=== PATIENT | female | born 1985 | race Caucasian/White ===

== ENCOUNTER 2018-11-04 10:38 | Inpatient (IN) | payer BC, OTHER ==
[2018-11-04] MEDS: LACTATED RINGERS 1,000 ML IV SCH ×4 (10:55→19:43)
[2018-11-04 11:06] LABS: Basophils % (A) 0 %; Eosinophils # (A) 0.1 k/uL (0-0.7); Eosinophils % (A) 0 %; HCT 35.3 % (34.0-46.0); HGB 11.7 gm/dL (11.4-16.0); Lymphocytes # (A) 2.2 k/uL (1.0-4.8); Lymphocytes % (A) 17 %; MCH 29.2 pg (25.0-35.0); MCHC 33.1 g/dL (31.0-37.0); MCV 88.2 fL (80.0-100.0); Mean Platelet Volume 6.4; Monocytes # (A) 0.4 k/uL (0-1.0); Monocytes % (A) 3 %; Neutrophils # (A) 10.4 k/uL (1.3-7.7); Neutrophils % (A) 78 %; Platelet Count 341 k/uL (150-450); RBC 4.01 m/uL (3.80-5.40); RDW 14.3 % (11.5-15.5); WBC 13.3 k/uL (3.8-10.6)
[2018-11-04] MEDS ORDERED: BETAMET ACET-BETAMETH SOD PHOS 6 MG/ML VIAL IM SCH (11:15)
[2018-11-04 11:55] LABS: D-Dimer 3.83 mg/L FEU (<0.60); INR 0.8 (<1.2); Partial Thromboplastin Time 23.1 sec (22.0-30.0); Prothrombin Time 9.4 sec (9.0-12.0)
--- NOTE | 2018-11-04 11:59 | US ---
EXAMINATION TYPE: US OB >= 14 wk fetus DATE OF EXAM: 11/04/2018 COMPARISON: None CLINICAL HISTORY: 33-year-old female Bleeding x 1 hour, 3, para 2 TECHNIQUE: Transabdominal (TA) FINDINGS: GESTATIONAL AGE / DATING Physician Established: (30 weeks/4 days) EDC: 01/09/2019 Dates by LMP: Unknown Dates by First Scan: No previous here Dates by Current Scan: (27 weeks/5 days) EDC: 01/29/2019 SURVEY IUP: Single PLACENTA: Posterior, one portion of the placenta is markedly heterogeneous and thickened containing a 6.4cm hypoechoic area within. PREVIA: No Previa NATHANIEL: 15.0 cm Normal CERVICAL LENGTH (transabdominal: norm > 3.0cm): 3.2 cm BIOMETRY PRESENTATION: Vertex LIE: Longitudinal BPD: 7.5 cm 30 weeks / 0 days HC: 26.8 cm 29 weeks / 1 days AC: 20.2 cm 24 weeks / 6 days FL: 5.2 cm 27 weeks / 6 days ESTIMATED WEIGHT IN GRAMS: 959.8 grams ESTIMATED WEIGHT IN LBS/OZ: 2 lbs. 2 oz. WEIGHT PERCENTAGE BASED ON ESTABLISHED DATES: <3% HC/AC: 1.33 Abnormal FL/AC: 25.94 Abnormal HEART RATE: 172 bpm RHYTHM: Normal Viable single IUP measuring 27 weeks 5 days with a heart rate of 172bpm and an estimated delivery gibran e of 01/29/2019. IMPRESSION: 1. Single live intrauterine with established gestational age of 30 weeks 4 days. Current ul trasound biometry is smaller (27 weeks 5 days) placing the child at the <3% for weight. 2. Posterior placenta without previa. However, a large portion of the placenta is very heterogeneous and thickened and contains a 6 cm focal area of hypoechogenicity. Intraplacental hemorrhage with more focal 6 cm hematoma not excluded. 3. Note elevated HC/AC. Underlying brain sparing physiology not excluded. 4. heart rate at the upper limits (172 BPM). A phone call to the ship laborer revealed that the patient was taken to surgery.
[2018-11-04 12:48] VITALS: BMI 34.0
--- NOTE | 2018-11-04 12:52 | P.HPOB ---
History of Present Illness H&P Date: 11/04/18 Chief Complaint: Vaginal bleeding This is a 33-year-old female 3 para 2, with an estimated date of confinement of 01/09/2019, estimated gestational age of 30 weeks 4 days, who presents to labor and delivery with complaints of vaginal bleeding that began about 10 AM today when she sat on the toilet to urinate. She did pass a few small clots. She denies any significant abdominal pain or cramping. She does feel some lower abdominal pressure. She came right to the hospital when the bleeding started. Her has been complicated by baby was diagnosed with [facility] patient of the aorta. She has been seeing doctors at [facility] with maternal- medicine and cardiac surgery. The plan was for her to deliver at [facility]. Her care has been with Dr. Madden and has been otherwise uncomplicated other than the issues with baby. labs: GC/chlamydia-negative Hepatitis B surface antigen-negative RPR-nonreactive Rubella-immune Blood type-O+ Antibody screen-negative Hemoglobin-12.3 Random glucose-73 One hour Glucola-85 Obstetrical history: . History of 2 vaginal deliveries at term with no complications. Gynecologic history: No history of sexual transmitted diseases. Review of Systems Constitutional: Denies chills, Denies fever Eyes: denies blurred vision, denies pain Ears, nose, mouth and throat: Denies headache, Denies sore throat Cardiovascular: Denies chest pain, Denies shortness of breath Respiratory: Denies cough Gastrointestinal: Denies abdominal pain, Denies diarrhea, Denies nausea, Denies vomiting Genitourinary: Reports abnormal vaginal bleeding, Reports pelvic pain (Pressure), Reports Musculoskeletal: Denies myalgias Integumentary: Denies pruritus, Denies rash Neurological: Denies numbness, Denies weakness Psychiatric: Denies anxiety, Denies depression Past Medical History Past Medical History: No Reported History History of Any Multi-Drug Resistant Organisms: None Reported Past Surgical History: No Surgical Hx Reported Past Psychological History: No Psychological Hx Reported Smoking Status: Never smoker Past Alcohol Use History: None Reported Past Drug Use History: None Reported Medications and Allergies Home Medications Medication Instructions Recorded Confirmed Type Pnv,Calcium 72/Iron/Folic Acid 1 each PO DAILY 11/04/18 11/04/18 History [ Plus Tablet] Allergies Allergy/AdvReac Type Severity Reaction Status Date / Time No Known Allergies Allergy Verified 11/04/18 10:43 Exam Osteopathic Statement: *. No significant issues noted on an osteopathic structural exam other than those noted in the History and Physical/Consult. Intake and Output 11/03/18 11/04/18 11/04/18 22:59 06:59 14:59 Other: Weight 81.647 kg HEENT: Within normal limits Heart: Regular rate and rhythm Lungs: Clear to auscultation bilaterally Abdomen: nontender Speculum exam: Watery bloody discharge Cervix exam: 1-1/2 cm/50%/ballotable heart tones: Category 1 with 15 x 15 accelerations and moderate vari ability, no contractions Extremities: Negative Homans Results Result Diagrams: 11/04/18 10:50 Abnormal Lab Results - Last 24 Hours (Table) 11/04/18 11/04/18 11/04/18 Range/Units 10:50 10:50 11:09 WBC 13.3 H (3.8-10.6) k/uL Neutrophils # 10.4 H (1.3-7.7) k/uL Fibrinogen 573 H (200-500) mg/dL D-Dimer 3.83 H (<0.60) mg/L FEU Crossmatch See Detail Assessment and Plan (1) 30 weeks gestation of Current Visit: Yes Status: Acute Code(s): Z3A.30 - 30 WEEKS GESTATION OF [place] EGNANCY SNOMED Code(s): 76016381 (2) Placental abruption in third trimester Current Visit: Yes Status: Acute Code(s): O45.93 - PREMATURE SEPARATION OF PLACENTA, UNSP, THIRD TRIMESTER SNOMED Code(s): 707825414 (3) cardiac anomaly affecting , antepartum Current Visit: Yes Status: Acute Code(s): O35.8XX0 - MATERNAL CARE FOR OTH ABNORMALITY AND DAMAGE, UNSP SNOMED Code(s): 243655238 (4) SGA (small for gestational age), , affecting care of mother, antepartum Current Visit: Yes Status: Acute Code(s): O36.5990 - MATERN CARE FOR OTH OR SUSP POOR FETL GRTH, UNSP TRI, UNSP SNOMED Code(s): 827563080 Plan: Admission for presumptive placental abruption. Will obtain labs and IV access. Anesthesia and pediatrics notified. We'll proceed with urgent section. I have discussed the risks, benefits, and alternative therapies for the above-m entioned procedure and for both sedation/anesthesia as well as necessary blood products administration, if indicated, as they pertain to this patient. The patient has indicated her understanding and acceptance of the risks and procedures discussed.
[2018-11-04] MEDS ORDERED: LIDOCAINE 1% 20 ML VIAL (10MG/ML) FOR IV START INTRADERMA PRN (12:54)
[2018-11-04] MEDS ORDERED: CITRIC ACID-SODIUM CITRATE 15 ML CUP PO ONE (12:54)
[2018-11-04] MEDS ORDERED: LACTATED RINGERS 1,000 ML IV SCH (13:00)
--- NOTE | 2018-11-04 13:07 | P.OP ---
Date of Procedure: 11/04/18 Preoperative Diagnosis: 1. Intrauterine at 30-4/7 weeks. 2. Probable placental abruption. 3. cardiac abnormality-probable coarctation of the aorta. 4. Small for gestational age fetus. Postoperative Diagnosis: Same Procedure(s) Performed: Primary low transverse section Anesthesia: spinal (Spinal Duramorph) Surgeon: Sandhya Peralta Computer Training Specialist #1: Trina Mccarthy Estimated Blood Loss (ml): 1,400 Pathology: other (Placenta) Condition: stable Disposition: floor Indications for Procedure: This is a 33-year-old female 3 para 2 at 30-4/7 weeks, who presents to labor and delivery with complaints of vaginal bleeding was sudden onset this morning. Ultrasound showed possible abnormality along the edge of the placenta. The center was posterior. Her cervix was dilated to 1-1/2 cm with active bright red bleeding noted. She was counseled and taken for urgent section under spinal anesthesia. Pediatrics is present due to known cardiac abnormalities and prematurity. Operative Findings: A viable female infant is noted in the vertex presentation. Apgars are pending at this time. Infant weight is 2 pounds 1.7 ounces. Clear fluid is noted with blood clots floating in the fluid. Placenta does appear to have clots next to it. Description of Procedure: The patient is taken to the operating room where she is placed in the dorsal supine position with leftward tilt after spinal Duramorph anesthesia is given. She is prepped and draped in the normal sterile fashion. Skin was tested and found to be adequately anesthetized. A Pfannenstiel skin incision was made with a scalpel. A second knife was used to carry the incision down to the underlying layer of fascia. The fascia was nicked in the midline with a scalpel and then extended laterally bilaterally with Sanders scissors. The anterior lip of the fascia was grasped with 2 Ananda clamps and then dissected off the underlying rectus muscle in the midline with Sanders scissors. The inferior aspect of the fascial incision was grasped with 2 Ananda clamps and dissected off the underlying rectus muscle and the midline with Sanders scissors. Next the peritoneum layer was tented up with 2 hemostats and then entered sharply with the scalpel. The incision is extended superiorly and inferiorly with Metzenbaum scissors. Next a DeLee retractor is placed. The vesicouterine peritoneum is entered sharply with Metzenbaum scissors and extended laterally bilaterally with Metzenbaum scissors and then the bladder flap is pushed inferiorly. The lower uterine segment is incised in transverse fashion with the scalpel and then bluntly entered with a hemostat. Clear fluid is noted with some blood clots floating. The incision was then extended laterally bilaterally with 2 fingers. Next the 's head is delivered through the incision. Nose and mouth are bulb suctioned. The remainder of the infant is easily delivered and placed on mother's abdomen. Cord is clamped and cut. is taken to warmer by nursing staff. Pediatrics is present. Uterine fundus is gently massaged and placenta is delivered manually. Several other blood clots are delivered shortly after the placenta. Uterus is exteriorized and cleared of all clots and debris. Uterine incision is closed with 0 Vicryl suture in a running locked fashion. A second layer of 0 Vicryl suture is used in a running fashion for hemostasis. Once adequate hemostasis as assured, the vesicouterine peritoneum is reapproximated with 2-0 Vicryl suture in a running fashion. Posterior cul-de-sac is suctioned of all clots and debris. Uterus is returned to the abdomen. Incision is noted to be hemostatic. Peritoneal layer is closed with 0 Vicryl suture in a running fashion. Muscle layer is reapproximated with 0 Vicryl suture in interrupted fashion. Fascia layer is then closed with 0 PDS suture with 2 sutures meeting in the midline and the knots buried in either side and in the midline. The subcutaneous tissue was then closed with 2-0 Vicryl suture. Skin layer was then closed with jules. All sponge and needle counts are correct. The patient is taken to recovery room in stable condition.
[2018-11-04] MEDS ORDERED: HYDROcodone/APAP 7.5-325MG 1 EACH TAB PO PRN (14:25)
[2018-11-04] MEDS ORDERED: ONDANSETRON 4 MG/2 ML VIAL IVP PRN (14:25)
[2018-11-04] MEDS ORDERED: METOCLOPRAMIDE 5 MG/ML 2 ML VIAL IVP PRN (14:25)
[2018-11-04] MEDS ORDERED: OXYTOCIN 20 UNITS/1000 ML NS 1,000 ML IV SCH (14:25)
[2018-11-04] MEDS ORDERED: diphenhydrAMINE 50 MG CAP PO PRN (14:25)
[2018-11-04] MEDS ORDERED: LANOLIN CREAM 5 GM TUBE TOPICAL PRN (14:25)
[2018-11-04] MEDS ORDERED: HYDROcodone/APAP 5-325MG 1 EACH TAB PO PRN (14:25)
[2018-11-04] MEDS ORDERED: NALOXONE 0.4 MG/ML 1 ML VIAL IV PRN (14:25)
[2018-11-04] MEDS ORDERED: SIMETHICONE 80 MG CHEWABLE PO PRN (14:25)
[2018-11-04] MEDS ORDERED: ACETAMINOPHEN TAB 325 MG TAB PO PRN (14:25)
[2018-11-04] MEDS ORDERED: diphenhydrAMINE 50 MG/ML 1 ML VIAL IVP PRN ×2 (14:25)
[2018-11-04] MEDS ORDERED: ZOLPIDEM 5 MG TAB PO PRN (14:25)
[2018-11-04] MEDS ORDERED: diphenhydrAMINE 25 MG CAP PO PRN (14:25)
[2018-11-04] MEDS ORDERED: IBUPROFEN 600 MG TAB PO PRN (14:25)
[2018-11-04] MEDS: KETOROLAC 30 MG/ML 1 ML VIAL IVP PRN (17:56)
[2018-11-04 18:36] LABS: Basophils % (A) 0 %; Eosinophils % (A) 0 %; HCT 30.6 % (34.0-46.0); HGB 9.8 gm/dL (11.4-16.0); Lymphocytes # (A) 1.1 k/uL (1.0-4.8); Lymphocytes % (A) 6 %; MCH 29.1 pg (25.0-35.0); MCHC 32.1 g/dL (31.0-37.0); MCV 90.6 fL (80.0-100.0); Monocytes # (A) 0.3 k/uL (0-1.0); Monocytes % (A) 2 %; Neutrophils # (A) 18.1 k/uL (1.3-7.7); Neutrophils % (A) 92 %; Platelet Count 312 k/uL (150-450); RBC 3.38 m/uL (3.80-5.40); RDW 14.5 % (11.5-15.5); WBC 19.6 k/uL (3.8-10.6)
[2018-11-04] MEDS ORDERED: SENNOSIDES-DOCUSATE SODIUM 1 EACH TAB PO SCH (20:00)
[2018-11-05] MEDS: KETOROLAC 30 MG/ML 1 ML VIAL IVP PRN ×3 (00:03→11:47)
[2018-11-05] MEDS: LACTATED RINGERS 1,000 ML IV SCH ×2 (00:05→04:36)
--- NOTE | 2018-11-05 06:25 | P.PN ---
Progress Note - Text Progress Note Date: 11/05/18 S/p duramorph spinal. pod 1, doing well. able to walk, able to have bowel and bladder function. minimal pruritis. pain well controlled. doing well over all. baby transferred to [facility]. delivery at 30 weeks with coarctation of aorta.
[2018-11-05 06:58] LABS: Basophils % (A) 0 %; Eosinophils # (A) 0.1 k/uL (0-0.7); Eosinophils % (A) 0 %; HCT 27.9 % (34.0-46.0); Lymphocytes # (A) 1.8 k/uL (1.0-4.8); Lymphocytes % (A) 9 %; MCH 28.9 pg (25.0-35.0); MCHC 32.2 g/dL (31.0-37.0); MCV 89.7 fL (80.0-100.0); Monocytes # (A) 0.5 k/uL (0-1.0); Monocytes % (A) 3 %; Neutrophils # (A) 17.1 k/uL (1.3-7.7); Neutrophils % (A) 87 %; Platelet Count 288 k/uL (150-450); RBC 3.11 m/uL (3.80-5.40); RDW 14.5 % (11.5-15.5); WBC 19.8 k/uL (3.8-10.6)
--- NOTE | 2018-11-05 08:30 | P.DS ---
Providers Date of admission: 11/04/18 11:08 Expected date of discharge: 11/05/18 Attending physician: Ben Madden Primary care physician: Stated None Hospital Course: Patient is postop day 1 from emergency section due to abruption at 31 weeks. Should her baby has been transferred to [facility] and she would like to go to [facility]. At this time her vital signs are stable and she is afebrile. Heart regular, lungs clear, extremities are without pain. She is able to ambulate. She is voiding without difficulty. She is tolerating a diet. We'll therefore discharged patient to home to that she go be with her baby. Instructions for discharge were thoroughly reviewed for her and all questions were answered for her. She'll follow up with me on Monday for stable removal. All the questions were answered for her and prescription for Motrin and no car were for it to the pharmacy. Patient Condition at Discharge: Good Plan - Discharge Summary Discharge Rx Participant: Yes New Discharge Prescriptions: New Ibuprofen [Motrin] 600 mg PO Q6HR PRN #30 tab PRN Reason: Pain HYDROcodone/APAP 5-325MG [Echo 5-325] 1 tab PO Q4HR PRN #20 tab PRN Reason: Pain No Action Pnv,Calcium 72/Iron/Folic Acid [ Plus Tablet] 1 each PO DAILY Discharge Medication List Pnv,Calcium 72/Iron/Folic Acid [ Plus Tablet] 1 each PO DAILY 11/04/18 [History] HYDROcodone/APAP 5-325MG [Echo 5-325] 1 tab PO Q4HR PRN #20 tab 11/05/18 [Rx] Ibuprofen [Motrin] 600 mg PO Q6HR PRN #30 tab 11/05/18 [Rx] Follow up Appointment(s)/Referral(s): Ben Madden DO [Doctor of Osteopathic Medicine] - 11/09/18 Activity/Diet/Wound Care/Special Instructions: No heavy lifting, limit stairs and driving, and pelvic rest. If any high temperatures, heavy bleeding, or severe pain call my office. Please return to the office on Monday for staple removal. Discharge Disposition: HOME SELF-CARE
[2018-11-05 09:19] VITALS: BP 109/61; PULSE 79; RESP 16; TEMP 98.2
== END 2018-11-05 13:20 | disposition home or self-care (01) | DRG 788 ==
LOC: FBPOP 10:38 → MERGE 11:08 → 4FBP 11:08
PROVIDERS: ADMIT Obstetrics & Gynecology; ATTEND Obstetrics & Gynecology
PROC: 10D00Z1 Extraction of Products of Conception, Low, Open Approach (ICD-10-PCS; principal; 2018-11-04 11:45)
DX: O45.93 Premature separation of placenta, unspecified, third trimester (principal); Z37.0 Single live birth; Z3A.31 31 weeks gestation of pregnancy; O36.5930 Maternal care for other known or suspected poor fetal growth, third trimester, not applicable or unspecified; O35.8XX0 Maternal care for other (suspected) fetal abnormality and damage, not applicable or unspecified; Z79.899 Other long term (current) drug therapy
CPT/HCPCS: 59025; 76805; 85025; 85379; 85384; 85610; 85730; 86850; 86900; 86901; 86920; 88307; 96360; 99215

== ENCOUNTER 2019-08-26 05:33 | Emergency (ER) | payer OTHER ==
[2019-08-26 05:46] VITALS: TEMP 97.6
[2019-08-26 06:11] VITALS: RESP 20
[2019-08-26] MEDS ORDERED: IPRATROPIUM-ALBUTEROL 3 ML NEB INHALATION STA (06:16)
--- NOTE | 2019-08-26 06:18 | ED ---
Chest Pain HPI - General Chief Complaint: Chest Pain Stated Complaint: Chest pain Time Seen by Provider: 08/26/19 06:02 Source: patient, RN notes reviewed, old records reviewed Mode of arrival: ambulatory Limitations: no limitations - History of Present Illness Initial Comments: Patient is a 34-year-old female presents emergency department today with months of coughing. She reports that this morning around 2 AM she woke up with left- sided rib pain. She reports that her cough is nonproductive. She states that the pain is reproducible palpation. She denies abdominal pain. She reports sometimes she coughs so hard she does vomit. - Related Data Home Medications Medication Instructions Recorded Confirmed Pnv,Calcium 72/Iron/Folic Acid 1 each PO DAILY 11/04/18 11/04/18 [ Plus Tablet] Previous Rx's Medication Instructions Recorded HYDROcodone/APAP 5-325MG [[place] 1 tab PO Q4HR PRN #20 tab 11/05/18 5-325] Ibuprofen [Motrin] 600 mg PO Q6HR PRN #30 tab 11/05/18 Albuterol Inhaler [Ventolin Hfa 1 - 2 puff INHALATION RT-Q6H PRN 08/26/19 Inhaler] #1 inhaler Azithromycin 250 mg PO DAILY 3 Days #6 tab 08/26/19 Promethazine/Dextromethorphan 5 ml PO TID #120 ml 08/26/19 [Phenergan DM Syrup] methylPREDNISolone Dose Pack 4 mg PO DIRECTED #21 package 08/26/19 [Medrol Dose Pack] Allergies Allergy/AdvReac Type Severity Reaction Status Date / Time No Known Allergies Allergy Verified 08/26/19 05:46 Review of Systems ROS Statement: Those systems with pertinent positive or pertinent negative responses have been documented in the HPI. ROS Other: All systems not noted in ROS Statement are negative. EKG Findings - EKG Comments: EKG Findings:: EKG shows normal sinus rhythm, rightward axis. Borderline EKG. Ventricular rate of 83 bpm. Pulse 140 ms. QS duration is 100 ms. QT QTc is 390/458 ms. Past Medical History Past Medical History: No Reported History History of Any Multi-Drug Resistant Organisms: None Reported Past Surgical History: Section Past Anesthesia/Blood Transfusion Reactions: No Reported Reaction Past Psychological History: No Psychological Hx Reported Smoking Status: Current every day smoker Past Alcohol Use History: Rare Past Drug Use History: None Reported - Past Family History Mother Family Medical History: No Reported History General Exam - General Exam Comments Initial Comments: 34-year-old female. Alert and oriented 3. No significant distress. General: Well appearing, well nourished, in no distress. Oriented x 3, normal mood and affect . Ambulating without difficulty. Skin: Good turgor, no rash, unusual bruising or prominent lesions Hair: Normal texture and distribution. HEENT: Head: Normocephalic, atraumatic, no visible or palpable masses, depressions, or scaring. Eyes: Visual acuity intact, conjunctiva clear, sclera non-icteric, EOM intact, PERRL. Ears: EACs clear, TMs translucent & cone of light visualized. hearing intact. Nose: No external lesions, mucosa non-inflamed, septum and turbinates normal Mouth: Mucous membranes moist, no mucosal lesions. Teeth/Gums: No obvious caries or periodontal disease. No gingival inflammation or significant resorption. Pharynx: Mucosa non-inflamed, no tonsillar hypertrophy or exudate Neck: Supple, without lesions, bruits, or adenopathy, thyroid non-enlarged and non-tender Heart: No cardiomegaly or thrills; regular rate and rhythm, no murmur or gallop Lungs: Clear to auscultation. Patient is a tenderness over the left ribs. Abdomen: Bowel sounds normal, no tenderness, organomegaly, masses, or hernia Back: Spine normal without deformity or tenderness, no CVA tenderness Rectal: Normal sphincter tone, no hemorrhoids or masses palpable Extremities: No amputations or deformities, cyanosis, edema or varicosities, p eripheral pulses intact Musculoskeletal: Normal gait and station. No misalignment, asymmetry, crepitation, defects, tenderness, masses, effusions, decreased range of motion, instability, atrophy or abnormal strength or tone in the head, neck, spine, ribs, pelvis or extremities. Neurologic: CN 2-12 normal. Sensation to pain, touch, and proprioception normal. DTRs normal in upper and lower extremities. No pathologic reflexes. Limitations: no limitations Course Vital Signs 08/26/19 08/26/19 08/26/19 05:43 06:10 07:49 Temperature 97.6 F Pulse Rate 101 H 89 90 Respiratory 18 20 Rate Blood Pressure 125/80 143/89 O2 Sat by Pulse 97 99 Oximetry 02/10/20 07:56 Temperature Pulse Rate 92 Respiratory Rate Blood Pressure O2 Sat by Pulse Oximetry Chest Pain MDM - MDM Asians other 4-year-old female presents with left-sided rib pain after months of coughing. She reports that she's woke up today with left-sided rib pain after heavy bouts of coughing. Patient is significant only tender and pain is reproducible. No abdominal pain. She doesn't appear to be short of breath. She is given DuoNeb treatment. She is given IM Solu-Medrol and Toradol. Patient's chest x-ray was read negative for any acute process. EKG was negative for any acute abnormality. This time patient's case is discussed with Dr. Martinez. Clinical concern for possible rib injury or contusion related to coughing. No clinical concern for PE. Negative wells score. Chest x-ray is normal. Treat the Patient this time for bronchitis with inhaler Solu-Medrol, cough medication and azithromycin due to persistent cough. I discussed return parameters and close PCP follow-up. Disposition Clinical Impression: Rib pain on left side, Chronic cough Disposition: HOME SELF-CARE Condition: Good Instructions (If sedation given, give patient instructions): Chronic Cough (ED), Rib Contusion (ED) Additional Instructions: Please use medication as discussed. Please follow up with family doctor if symptoms have not improved over the next two days. Please return to the emergency room if your symptoms increase or worsen or for any other concerns. Prescriptions: Azithromycin 250 mg PO DAILY 3 Days #6 tab methylPREDNISolone Dose Pack [Medrol Dose Pack] 4 mg PO DIRECTED #21 package Promethazine/Dextromethorphan [Phenergan DM Syrup] 5 ml PO TID #120 ml Albuterol Inhaler [Ventolin Hfa Inhaler] 1 - 2 puff INHALATION RT-Q6H PRN #1 inhaler PRN Reason: Shortness Of Breath Is patient prescribed a controlled substance at d/c from ED?: No Referrals: None,Stated [Primary Care Provider] - 1-2 days Time of Disposition: 08:16
--- NOTE | 2019-08-26 06:19 | XR ---
EXAMINATION TYPE: XR chest 2V DATE OF EXAM: 08/26/2019 COMPARISON: NONE HISTORY: Cough TECHNIQUE: FINDINGS: Heart and mediastinum are normal. Lungs are clear. Diaphragm is normal. Bony thorax appears normal. IMPRESSION: Normal chest
[2019-08-26] MEDS ORDERED: guaiFENesin-Coden 100-10MG/5ML 10 ML CUP PO ONE (06:30)
[2019-08-26] MEDS ORDERED: methylPREDNISolone SOD SUCCI 125 MG/2 ML VIAL IM ONE (07:13)
[2019-08-26] MEDS ORDERED: KETOROLAC 60 MG/2 ML VIAL IM STA (07:14)
[2019-08-26 08:40] VITALS: BP 134/89; PULSE 72
== END 2019-08-26 08:41 | disposition home or self-care (01) ==
LOC: EC 05:33
DX: J40 Bronchitis, not specified as acute or chronic (principal); F17.200 Nicotine dependence, unspecified, uncomplicated
CPT/HCPCS: 94640; 93005; 87502; 71046; 99284; 96372 ×2; J2930; J1885

== ENCOUNTER 2020-04-12 10:37 | Emergency (ER) | payer OTHER ==
[2020-04-12] MEDS ORDERED: ONDANSETRON 4 MG/2 ML VIAL IVP STA (11:08)
[2020-04-12] MEDS ORDERED: SODIUM CHLORIDE 0.9% 500 ML 500 ML IV STA (11:08)
[2020-04-12] MEDS ORDERED: PANTOPRAZOLE 40 MG/10 ML VIAL IVP STA (11:08)
[2020-04-12] MEDS ORDERED: SODIUM CHLORIDE 0.9% 1,000 ML IV STA (11:08)
[2020-04-12] MEDS ORDERED: MAG HYDROX/AL HYDROX/SIMETH 30 ML, HYOSCYAMINE ELIXIR 10 ML PO STA ×2 (11:09)
--- NOTE | 2020-04-12 11:21 | ED ---
Nausea/Vomiting/Diarrhea HPI - General Chief complaint: Nausea/Vomiting/Diarrhea Stated complaint: Abd pain, vomiting blood Time Seen by Provider: 04/12/20 10:59 Source: patient, RN notes reviewed Mode of arrival: wheelchair Limitations: no limitations - History of Present Illness Initial comments: This a 34-year-old female presents emergency Department chief complaint abdominal pain, nausea vomiting. Patient states she's been sick for last 2 months states that she's noticed that she's had dark black looking stools and states that she vomited up some coffee colored emesis today. Patient states that there is no consistency to it states it was more liquid. Patient denies any current chest pain. She states that she does take Motrin regular basis. She states it seems to make it worse. She attempted to start omeprazole [id number] but has been taking intermittently. She has no history of gastric ulcers. Patient denies any other medications taken. Patient states she feels tired, fatigued, feels dehydrated. - Related Data Home Medications Medication Instructions Recorded Confirmed Pnv,Calcium 72/Iron/Folic Acid 1 each PO DAILY 11/04/18 11/04/18 [ Plus Tablet] Previous Rx's Medication Instructions Recorded HYDROcodone/APAP 5-325MG [[place] 1 tab PO Q4HR PRN #20 tab 11/05/18 5-325] Ibuprofen [Motrin] 600 mg PO Q6HR PRN #30 tab 11/05/18 Albuterol Inhaler (Mhu) [Ventolin 1 - 2 puff INHALATION RT-Q6H PRN 08/26/19 Hfa Inhaler (Mhu)] #1 inhaler Azithromycin 250 mg PO DAILY 3 Days #6 tab 08/26/19 Promethazine/Dextromethorphan 5 ml PO TID #120 ml 08/26/19 [Phenergan DM Syrup] methylPREDNISolone Dose Pack 4 mg PO DIRECTED #21 package 08/26/19 [Medrol Dose Pack] Ondansetron Odt [Zofran Odt] 4 mg PO Q8HR PRN #10 tab 04/12/20 Pantoprazole [Protonix] 40 mg PO DAILY #30 tablet. 04/12/20 Sucralfate [Carafate] 1 gm PO BID #14 tablet 04/12/20 Allergies Allergy/AdvReac Type Severity Reaction Status Date / Time No Known Allergies Allergy Verified 04/12/20 10:57 Review of Systems ROS Statement: Those systems with pertinent positive or pertinent negative responses have been documented in the HPI. ROS Other: All systems not noted in ROS Statement are negative. Past Medical History Past Medical History: No Reported History History of Any Multi-Drug Resistant Organisms: None Reported Past Surgical History: Section Past Anesthesia/Blood Transfusion Reactions: No Reported Reaction Past Psychological History: No Psychological Hx Reported Smoking Status: Current every day smoker Past Alcohol Use History: Rare Past Drug Use History: None Reported - Past Family History Mother Family Medical History: No Reported History General Exam Limitations: no limitations General appearance: alert, in no apparent distress Head exam: Present: atraumatic, normocephalic, normal inspection Eye exam: Present: normal appearance, PERRL, EOMI. Absent: scleral icterus, conjunctival injection, periorbital swelling ENT exam: Present: normal exam, normal oropharynx, mucous membranes moist, TM's normal bilaterally Neck exam: Present: normal inspection, full ROM. Absent: tenderness, meningismus, lymphadenopathy Respiratory exam: Present: normal lung sounds bilaterally. Absent: respiratory distress, wheezes, rales, rhonchi, stridor Cardiovascular Exam: Present: regular rate, normal rhythm, normal heart sounds. Absent: systolic murmur, diastolic murmur, rubs, gallop, clicks GI/Abdominal exam: Present: soft, tenderness (Epigastric moderate), normal bowel sounds. Absent: distended, guarding, rebound, rigid Neurological exam: Present: alert, oriented X3 Skin exam: Present: warm, dry, intact, normal color. Absent: rash Course Vital Signs 04/12/20 04/12/20 10:55 12:21 Temperature 98.1 F Pulse Rate 107 H 75 Respiratory 16 18 Rate Blood Pressure 118/73 126/79 O2 Sat by Pulse 100 98 Oximetry Medical Decision Making - Medical Decision Making 34-year-old female presented from for abdominal pain. Patient does have mild transaminitis and hyperbilirubinemia. Patient had ultrasound shows fatty liver disease. We discussed follow-up with GI patient's had some ongoing abdominal issues related to most likely peptic ulcer disease. Patient we treated with Protonix, Carafate with follow-up with GI. - Lab Data Result diagrams: 04/12/20 11:17 09/27/20 11:17 Lab Results 04/12/20 04/12/20 04/12/20 Range/Units 11:17 11:17 11:28 WBC 9.3 (3.8-10.6) k/uL RBC 4.37 (3.80-5.40) m/uL Hgb 13.2 (11.4-16.0) gm/dL Hct 42.0 (34.0-46.0) % MCV 96.2 (80.0-100.0) fL MCH 30.3 (25.0-35.0) pg MCHC 31.5 (31.0-37.0) g/dL RDW 17.8 H (11.5-15.5) % Plt Count 241 (150-450) k/uL Neutrophils % 72 % Lymphocytes % 17 % Monocytes % 8 % Eosinophils % 1 % Basophils % 1 % Neutrophils # 6.7 (1.3-7.7) k/uL Lymphocytes # 1.6 (1.0-4.8) k/uL Monocytes # 0.8 (0-1.0) k/uL Eosinophils # 0.1 (0-0.7) k/uL Basophils # 0.0 (0-0.2) k/uL Anisocytosis Slight Macrocytosis Slight Sodium 138 (137-145) mmol/L Potassium 3.2 L (3.5-5.1) mmol/L Chloride 102 (98-107) mmol/L Carbon Dioxide 28 (22-30) mmol/L Anion Gap 8 mmol/L BUN 3 L (7-17) mg/dL Creatinine 0.58 (0.52-1.04) mg/dL Est GFR (CKD-EPI)AfAm >90 (>60 ml/min/1.73 sqM) Est GFR (CKD-EPI)NonAf >90 (>60 ml/min/1.73 sqM) Glucose 114 H (74-99) mg/dL Calcium 8.5 (8.4-10.2) mg/dL Total Bilirubin 1.5 H (0.2-1.3) mg/dL AST 160 H (14-36) U/L ALT 57 H (4-34) U/L Alkaline Phosphatase 222 H (38-126) U/L Total Protein 6.7 (6.3-8.2) g/dL Albumin 3.3 L (3.5-5.0) g/dL Amylase 51 (30-110) U/L Lipase 269 (23-300) U/L Urine Color Dark Yellow Urine Appearance Clear (Clear) Urine pH 6.5 (5.0-8.0) Ur Specific [place] 1.025 (1.001-1.035) Urine Protein Trace H (Negative) Urine Glucose (UA) Negative (Negative) Urine Ketones Trace H (Negative) Urine Blood Moderate H (Negative) Urine Nitrite Negative (Negative) Urine Bilirubin 1+ H (Negative) Urine Urobilinogen 8.0 (<2.0) mg/dL Ur Leukocyte Esterase Negative (Negative) Urine RBC 12 H (0-5) /hpf Urine WBC 1 (0-5) /hpf Ur Squamous Epith Cells <1 (0-4) /hpf Hyaline Casts 3 H (0-2) /lpf Urine Mucus Few H (None) /hpf Disposition Clinical Impression: Peptic ulcer disease, Abdominal pain Disposition: HOME SELF-CARE Condition: Stable Instructions (If sedation given, give patient instructions): Peptic Ulcer (ED), Diet for Stomach Ulcers and Gastritis (ED) Additional Instructions: Please return to the Emergency Department if symptoms worsen or any other concerns. Prescriptions: Sucralfate [Carafate] 1 gm PO BID #14 tablet Pantoprazole [Protonix] 40 mg PO DAILY #30 tablet. Ondansetron Odt [Zofran Odt] 4 mg PO Q8HR PRN #10 tab PRN Reason: Nausea Is patient prescribed a controlled substance at d/c from ED?: No Referrals: None,Stated [Primary Care Provider] - 1-2 days Ines Cordero MD [STAFF PHYSICIAN] - 1-2 days Time of Disposition: 13:34
[2020-04-12 11:29] LABS: Anisocytosis Slight; Basophils % (A) 1 %; Eosinophils # (A) 0.1 k/uL (0-0.7); Eosinophils % (A) 1 %; HGB 13.2 gm/dL (11.4-16.0); Lymphocytes # (A) 1.6 k/uL (1.0-4.8); Lymphocytes % (A) 17 %; MCH 30.3 pg (25.0-35.0); MCHC 31.5 g/dL (31.0-37.0); MCV 96.2 fL (80.0-100.0); Macrocytosis Slight; Mean Platelet Volume 7.3; Monocytes # (A) 0.8 k/uL (0-1.0); Monocytes % (A) 8 %; Neutrophils # (A) 6.7 k/uL (1.3-7.7); Neutrophils % (A) 72 %; Platelet Count 241 k/uL (150-450); RBC 4.37 m/uL (3.80-5.40); RDW 17.8 % (11.5-15.5); WBC 9.3 k/uL (3.8-10.6)
[2020-04-12 11:41] LABS: ALT 57 U/L (4-34); AST 160 U/L (14-36); African American GFR (CKD) >90 (>60 ml/min/1.73 sqM); Albumin 3.3 g/dL (3.5-5.0); Alkaline Phosphatase 222 U/L (38-126); Amylase 51 U/L (30-110); Anion Gap 8 mmol/L; Blood Urea Nitrogen 3 mg/dL (7-17); Calcium 8.5 mg/dL (8.4-10.2); Carbon Dioxide 28 mmol/L (22-30); Chloride 102 mmol/L (98-107); Glucose 114 mg/dL (74-99); Non-African American GFR(CKD) >90 (>60 ml/min/1.73 sqM); Potassium 3.2 mmol/L (3.5-5.1); Sodium 138 mmol/L (137-145); Total Bilirubin 1.5 mg/dL (0.2-1.3); Total Protein 6.7 g/dL (6.3-8.2)
[2020-04-12 12:10] LABS: Appearance,Urine Clear (Clear); Bilirubin,Urine 1+ (Negative); Blood,Urine Moderate (Negative); Color,Urine Dark Yellow; Glucose,Urine (UA) Negative (Negative); Hyaline Casts,Urine 3 /lpf (0-2); Ketones,Urine Trace (Negative); Leukocyte Esterase,Urine Negative (Negative); Mucus,Urine Few /hpf; Nitrite,Urine Negative (Negative); PH, Urine 6.5 (5.0-8.0); Protein,Urine Trace (Negative); RBC,Urine 12 /hpf (0-5); Specific Gravity,Urine 1.025 (1.001-1.035); Squamous Epithelial Cell,Urine <1 /hpf (0-4); WBC,Urine 1 /hpf (0-5)
[2020-04-12] MEDS ORDERED: HYDROmorphone 0.5 MG/0.5 ML SYRINGE IVP STA (12:24)
--- NOTE | 2020-04-12 13:28 | US ---
EXAMINATION TYPE: US gallbladder DATE OF EXAM: 04/12/2020 COMPARISON: CT 08/04/2012, US 09/11/2012 CLINICAL HISTORY: pain. Difficult exam due to overlying bowel gas EXAM MEASUREMENTS: Liver Length: 17.9 cm Gallbladder Wall: 0.2 cm CBD: 0.6 cm Right Kidney: 10.6 x 4.3 x 5.4 cm Pancreas: Obscured by bowel gas Liver: Enlarged, attenuating, heterogeneous compatible with moderate fatty infiltration of the liver . Gallbladder: wnl Evidence for sonographic Shipley's sign: Yes CBD: Measuring upper limits of normal Right Kidney: No hydronephrosis or masses seen IMPRESSION: 1. Hepatomegaly with moderate fatty infiltration liver.
[2020-04-12 13:47] VITALS: BP 129/80; PULSE 82; RESP 16; TEMP 97.6
== END 2020-04-12 13:47 | disposition home or self-care (01) ==
LOC: EC 10:37
DX: K27.9 Peptic ulcer, site unspecified, unspecified as acute or chronic, without hemorrhage or perforation (principal); R74.0 Nonspecific elevation of levels of transaminase and lactic acid dehydrogenase [LDH]; E80.6 Other disorders of bilirubin metabolism; K76.0 Fatty (change of) liver, not elsewhere classified; F17.200 Nicotine dependence, unspecified, uncomplicated
CPT/HCPCS: 36415; 80053; 82150; 83690; 85025; 81001; 76705; 99284; 96374; 96375 ×2; 96361 ×2; J2405; C9113; J1170

== ENCOUNTER 2021-04-04 19:20 | Emergency (ER) | payer OTHER ==
[2021-04-04] MEDS ORDERED: ONDANSETRON 4 MG/2 ML VIAL IVP STA (20:14)
[2021-04-04] MEDS ORDERED: HYDROmorphone 1 MG/ML 1 ML SYRINGE IVP STA ×2 (20:14→21:44)
[2021-04-04] MEDS ORDERED: SODIUM CHLORIDE 0.9% 1,000 ML IV STA (20:14)
[2021-04-04 20:43] LABS: Basophils % (A) 0 %; Eosinophils # (A) 0.1 k/uL (0-0.7); Eosinophils % (A) 1 %; HGB 11.8 gm/dL (11.4-16.0); Lymphocytes # (A) 2.6 k/uL (1.0-4.8); Lymphocytes % (A) 31 %; MCH 26.9 pg (25.0-35.0); MCHC 31.8 g/dL (31.0-37.0); MCV 84.6 fL (80.0-100.0); Mean Platelet Volume 6.8; Monocytes # (A) 0.4 k/uL (0-1.0); Monocytes % (A) 4 %; Neutrophils # (A) 5.1 k/uL (1.3-7.7); Neutrophils % (A) 61 %; Platelet Count 248 k/uL (150-450); RBC 4.38 m/uL (3.80-5.40); RDW 15.8 % (11.5-15.5); WBC 8.5 k/uL (3.8-10.6)
[2021-04-04 20:52] LABS: Appearance,Urine Clear (Clear); Bilirubin,Urine Negative (Negative); Blood,Urine Negative (Negative); Color,Urine Colorless; Glucose,Urine (UA) Negative (Negative); Ketones,Urine Negative (Negative); Leukocyte Esterase,Urine Negative (Negative); Nitrite,Urine Negative (Negative); Protein,Urine Negative (Negative); Specific Gravity,Urine 1.003 (1.001-1.035); Urobilinogen,Urine <2.0 mg/dL (<2.0)
[2021-04-04 21:10] LABS: ALT 12 U/L (4-34); AST 19 U/L (14-36); African American GFR (CKD) >90 (>60 ml/min/1.73 sqM); Albumin 4.3 g/dL (3.5-5.0); Alkaline Phosphatase 64 U/L (38-126); Amylase 48 U/L (30-110); Anion Gap 11 mmol/L; Blood Urea Nitrogen 8 mg/dL (7-17); Calcium 9.9 mg/dL (8.4-10.2); Carbon Dioxide 22 mmol/L (22-30); Chloride 107 mmol/L (98-107); Glucose 83 mg/dL (74-99); Lipase 56 U/L (23-300); Non-African American GFR(CKD) >90 (>60 ml/min/1.73 sqM); Potassium 3.7 mmol/L (3.5-5.1); Sodium 140 mmol/L (137-145); Total Bilirubin 0.3 mg/dL (0.2-1.3); Total Protein 7.4 g/dL (6.3-8.2)
--- NOTE | 2021-04-04 21:43 | XR ---
EXAMINATION TYPE: XR KUB DATE OF EXAM: 04/04/2021 COMPARISON: 08/04/2012 HISTORY: Abdominal pain TECHNIQUE: 2 views upright FINDINGS: There is no sign of intestinal obstruction or pneumoperitoneum. Fecal pattern is normal. Th ere are opacities on the right side of the abdomen that could be ingested medication. There are no de finite calcifications over the kidneys. There is mild thoracolumbar levoscoliosis. Lung bases are steph ar. IMPRESSION: Nonacute abdomen.
[2021-04-04 21:54] VITALS: PULSE 85
--- NOTE | 2021-04-04 22:02 | ED ---
Abdominal Pain HPI - General Chief Complaint: Abdominal Pain Stated Complaint: Pancreatitis Time Seen by Provider: 04/04/21 20:01 Source: patient, RN notes reviewed Mode of arrival: ambulatory - History of Present Illness Initial Comments: Patient is a 35-year-old female that presents to emergency department stating that she is having a pancreatitis flareup. She notes then going on since Monday. She notes that she tried remedying at home with no relief. She was otherwise a well-appearing 35-year-old female. She noted that her pain was approximately an 8-9 out of 10 with no relief. She denied any aggravating factors or alleviating factors. She also is constant on the day. She denied any chest pain shortness of breath headache vomiting diarrhea constipation fever fatigue chills. - Related Data Home Medications Medication Instructions Recorded Confirmed Pnv,Calcium 72/Iron/Folic Acid 1 each PO DAILY 11/04/18 11/04/18 [ Plus Tablet] Previous Rx's Medication Instructions Recorded HYDROcodone/APAP 5-325MG [[place] 1 tab PO Q4HR PRN #20 tab 11/05/18 5-325] Ibuprofen [Motrin] 600 mg PO Q6HR PRN #30 tab 11/05/18 Albuterol Inhaler (Mhu) [Ventolin 1 - 2 puff INHALATION RT-Q6H PRN 08/26/19 Hfa Inhaler (Mhu)] #1 inhaler Azithromycin 250 mg PO DAILY 3 Days #6 tab 08/26/19 Promethazine/Dextromethorphan 5 ml PO TID #120 ml 08/26/19 [Phenergan DM Syrup] methylPREDNISolone Dose Pack 4 mg PO DIRECTED #21 package 08/26/19 [Medrol Dose Pack] Ondansetron Odt [Zofran Odt] 4 mg PO Q8HR PRN #10 tab 04/12/20 Pantoprazole [Protonix] 40 mg PO DAILY #30 tablet. 04/12/20 Sucralfate [Carafate] 1 gm PO BID #14 tablet 04/12/20 Allergies Allergy/AdvReac Type Severity Reaction Status Date / Time No Known Allergies Allergy Verified 04/04/21 19:49 Review of Systems ROS Statement: Those systems with pertinent positive or pertinent negative responses have been documented in the HPI. ROS Other: All systems not noted in ROS Statement are negative. Past Medical History Past Medical History: No Reported History Additional Past Medical History / Comment(s): pancreatitis History of Any Multi-Drug Resistant Organisms: None Reported Past Surgical History: Section Past Anesthesia/Blood Transfusion Reactions: No Reported Reaction Past Psychological History: No Psychological Hx Reported Smoking Status: Current every day smoker Past Alcohol Use History: Rare Past Drug Use History: None Reported - Past Family History Mother Family Medical History: No Reported History General Exam General appearance: alert, in no apparent distress Head exam: Present: atraumatic, normocephalic, normal inspection Eye exam: Present: normal appearance, PERRL, EOMI. Absent: scleral icterus, conjunctival injection, periorbital swelling Neck exam: Present: normal inspection Respiratory exam: Present: normal lung sounds bilaterally. Absent: respiratory distress, wheezes, rales, rhonchi, stridor Cardiovascular Exam: Present: regular rate, normal rhythm, normal heart sounds. Absent: systolic murmur, diastolic murmur, rubs, gallop, clicks GI/Abdominal exam: Present: soft, tenderness (Upper quadrant), normal bowel sounds. Absent: distended, guarding, rebound, rigid Extremities exam: Present: normal inspection, full ROM, normal capillary refill. Absent: tenderness, pedal edema, joint swelling, calf tenderness Neurological exam: Present: alert, oriented X3 Psychiatric exam: Present: normal affect, normal mood Skin exam: Present: warm, dry, intact, normal color. Absent: rash Course Vital Signs 04/04/21 04/04/21 19:47 21:52 Temperature 98 F Pulse Rate 86 85 Respiratory 18 16 Rate Blood Pressure 117/77 118/84 O2 Sat by Pulse 98 97 Oximetry Medical Decision Making - Medical Decision Making 35-year-old female complaining of pancreatitis flareups. Labs, 1 L normal saline, 1 mg of Dilaudid, KUB ordered. Labs unremarkable. KUB negative for any acute process. Case discussed with Dr. Noe, patient discharge home with follow-up primary care. - Lab Data Result diagrams: 04/04/21 20:22 04/04/21 20:22 Lab Results 04/04/21 04/04/21 04/04/21 Range/Units 20:22 20:22 20:22 WBC 8.5 (3.8-10.6) k/uL RBC 4.38 (3.80-5.40) m/uL Hgb 11.8 (11.4-16.0) gm/dL Hct 37.0 (34.0-46.0) % MCV 84.6 (80.0-100.0) fL MCH 26.9 (25.0-35.0) pg MCHC 31.8 (31.0-37.0) g/dL RDW 15.8 H (11.5-15.5) % Plt Count 248 (150-450) k/uL MPV 6.8 Neutrophils % 61 % Lymphocytes % 31 % Monocytes % 4 % Eosinophils % 1 % Basophils % 0 % Neutrophils # 5.1 (1.3-7.7) k/uL Lymphocytes # 2.6 (1.0-4.8) k/uL Monocytes # 0.4 (0-1.0) k/uL Eosinophils # 0.1 (0-0.7) k/uL Basophils # 0.0 (0-0.2) k/uL Sodium 140 (137-145) mmol/L Potassium 3.7 (3.5-5.1) mmol/L Chloride 107 (98-107) mmol/L Carbon Dioxide 22 (22-30) mmol/L Anion Gap 11 mmol/L BUN 8 (7-17) mg/dL Creatinine 0.58 (0.52-1.04) mg/dL Est GFR (CKD-EPI)AfAm >90 (>60 ml/min/1.73 sqM) Est GFR (CKD-EPI)NonAf >90 (>60 ml/min/1.73 sqM) Glucose 83 (74-99) mg/dL Calcium 9.9 (8.4-10.2) mg/dL Total Bilirubin 0.3 (0.2-1.3) mg/dL AST 19 (14-36) U/L ALT 12 (4-34) U/L Alkaline Phosphatase 64 (38-126) U/L Total Protein 7.4 (6.3-8.2) g/dL Albumin 4.3 (3.5-5.0) g/dL Amylase 48 (30-110) U/L Lipase 56 (23-300) U/L Urine Color Colorless Urine Appearance Clear (Clear) Urine pH 6.0 (5.0-8.0) Ur Specific [place] 1.003 (1.001-1.035) Urine Protein Negative (Negative) Urine Glucose (UA) Negative (Negative) Urine Ketones Negative (Negative) Urine Blood Negative (Negative) Urine Nitrite Negative (Negative) Urine Bilirubin Negative (Negative) Urine Urobilinogen <2.0 (<2.0) mg/dL Ur Leukocyte Esterase Negative (Negative) - Radiology Data Radiology results: report reviewed, image reviewed KUB: Nonacute abdomen. Disposition Clinical Impression: Abdominal pain Disposition: HOME SELF-CARE Condition: Stable Instructions (If sedation given, give patient instructions): Abdominal Pain (ED) Additional Instructions: Please return to the Emergency Department if symptoms worsen or any other concerns. Follow-up with primary care 1-2 days. Follow-up with GI specialist as needed. [place] diet, increase oral fluids. Is patient prescribed a controlled substance at d/c from ED?: No Referrals: Willam [place] MD [Primary Care Provider] - 1-2 days Time of Disposition: 22:29
[2021-04-04 23:38] VITALS: BP 125/76; RESP 18; TEMP 98.2
== END 2021-04-04 23:12 | disposition home or self-care (01) ==
LOC: EC 19:20
DX: R10.9 Unspecified abdominal pain (principal); F17.200 Nicotine dependence, unspecified, uncomplicated
CPT/HCPCS: 99284; 96374; 96375; 96376; 96361; 36415; 80053; 82150; 83690; 85025; 81003; 74018; J2405; J1170